=== PATIENT | male | born 1990 | race Caucasian/White ===

== ENCOUNTER 2018-11-28 13:29 | Inpatient (IN) | payer MEDICAID ==
[~2018-11-28] VITALS: Ht 182.9 cm; Wt 87.7 kg
[2018-11-28 16:27] VITALS: BP 118/71
[2018-11-28] MEDS ORDERED: HALOPERIDOL 5 MG TABLET PO PRN (16:45)
[2018-11-28] MEDS ORDERED: DIAZ5 PO (16:58)
[2018-11-28] MEDS ORDERED: MELO-107 PO (16:58)
[2018-11-28] MEDS ORDERED: QUET200T PO (16:58)
[2018-11-28] MEDS ORDERED: CITA-106 PO (16:58)
[2018-11-28 17:12] VITALS: BP 139/75
[2018-11-28] MEDS ORDERED: NICOTINE 14 MG/24 HOUR PATCH TD PRN (17:45)
[2018-11-28] MEDS ORDERED: PETROLATUM,WHITE 71 GM JELLY TP PRN (17:45)
[2018-11-28] MEDS ORDERED: IBUPROFEN 400 MG TABLET PO PRN (17:45)
[2018-11-28] MEDS ORDERED: LOPERAMIDE HCL 2 MG CAPSULE PO PRN (17:45)
[2018-11-28] MEDS ORDERED: MAGNESIUM HYDROXIDE SUSPENSION 30 ML UDCUP PO PRN (17:45)
[2018-11-28] MEDS ORDERED: GuaiFENesin/D-METHORPHAN [SUGAR-FREE] 200-20MG/10 ML SYRUP UDCUP PO PRN (17:45)
[2018-11-28] MEDS ORDERED: ALBUTEROL SULFATE HFA 90 MCG/PUFF 8 GM INHALER IH PRN (17:45)
[2018-11-28] MEDS ORDERED: DOCUSATE SODIUM 100 MG CAPSULE PO PRN (17:45)
[2018-11-28] MEDS ORDERED: MAG HYDROX/AL HYDROX/SIMETH ES 30 ML SUSPENSION UDCUP PO PRN (17:45)
[2018-11-28] MEDS ORDERED: CloNIDine HCL 0.1 MG TABLET PO PRN (17:45)
[2018-11-28] MEDS ORDERED: ONDANSETRON HCL 4 MG TABLET PO PRN (17:45)
[2018-11-28] MEDS ORDERED: ACETAMINOPHEN 325 MG TABLET PO PRN (17:45)
[2018-11-28] MEDS: ZOLPIDEM TARTRATE 10 MG TABLET PO PRN (21:13)
[2018-11-29 00:58] VITALS: BP 123/76
[2018-11-29 08:11] VITALS: BP 128/67
[2018-11-29 08:47] LABS: BASOPHILS % (AUTO) 1.1 % (0.0-2.0); EOSINOPHILS % (AUTO) 1.7 % (1.0-6.0); HEMATOCRIT 43.7 % (41-53); HEMOGLOBIN 14.6 g/dL (13.5-17.5); LYMPHOCYTES # (AUTO) 1.9 K/uL (1.0-4.8); LYMPHOCYTES % (AUTO) 29.5 % (22.0-44.0); MEAN CORPUSCULAR HEMOGLOBIN 28.6 pg (26.0-34.0); MEAN CORPUSCULAR HGB CONC 33.4 G/dL (31.0-37.0); MEAN CORPUSCULAR VOLUME 86 fL (80-100); MONOCYTES # (AUTO) 0.5 K/uL (0.1-1.0); MONOCYTES % (AUTO) 7.2 % (2.0-9.0); NEUTROPHILS # (AUTO) 3.8 K/uL (1.8-7.7); NEUTROPHILS % (AUTO) 60.5 % (40.0-70.0); PLATELET COUNT (AUTO) 253 K/uL (150-450); RED CELL DISTRIBUTION WIDTH 13.5 % (11.5-14.5)
[2018-11-29 08:55] LABS: ALANINE AMINOTRANSFERASE 18 U/L (12-78); ALBUMIN 3.7 g/dL (3.4-5.0); ALKALINE PHOSPHATASE 43 U/L (46-116); ANION GAP 5 mmol/L (8-16); ASPARTATE AMINOTRANSFERASE 13 U/L (15-37); BILIRUBIN,TOTAL 0.7 mg/dL (0.1-1.0); CALCIUM, TOTAL 8.8 mg/dL (8.8-10.5); CARBON DIOXIDE 31 mmol/L (22-29); CHLORIDE 107 mmol/L (98-107); CHOL/HDL RATIO 2.6 (4.2-7.3); CHOLESTEROL 131 mg/dL (131-200); CREATININE 0.61 mg/dL (0.60-1.30); FREE T4 (FREE THYROXINE) 0.73 ng/dL (0.76-1.46); GLOMERULAR FILTR. RATE CALC > 60 mL/min (>60); GLUCOSE,RANDOM 81 mg/dL (70-110); HDL CHOLESTEROL 50 mg/dL (40-60); LDL CHOL (CALC.) 72 mg/dL (0-130); POTASSIUM 4.1 mmol/L (3.5-5.1); SODIUM SERUM 143 mmol/L (136-145); THYROID STIMULATING HORMONE 0.64 uIU/mL (0.36-3.74); TOTAL PROTEIN, SERUM 6.8 g/dL (6.4-8.2); TRIGLYCERIDES 44 mg/dL (15-150); UREA NITROGEN, BLOOD 15 mg/dL (7-18)
[2018-11-29] MEDS: OLANZapine 5 MG TABLET PO SCH (09:24)
[2018-11-29 09:28] LABS: HEMOGLOBIN A1C 4.9 % (4.5-6.2)
[2018-11-29 16:10] VITALS: BP 108/60
[2018-11-29] MEDS: ZOLPIDEM TARTRATE 10 MG TABLET PO PRN (21:31)
[2018-11-29] MEDS: LORazepam 2 MG TABLET PO PRN (21:31)
[2018-11-30 04:11] VITALS: BP 124/80
[2018-11-30 08:00] VITALS: BP 138/78
[2018-11-30] MEDS: LORazepam 2 MG TABLET PO PRN ×2 (09:02→16:54)
[2018-11-30] MEDS: OLANZapine 5 MG TABLET PO SCH (09:02)
[2018-11-30 16:01] VITALS: BP 128/83
[2018-11-30] MEDS: ZOLPIDEM TARTRATE 10 MG TABLET PO PRN (20:14)
[2018-12-01 05:23] VITALS: BP 119/83
[2018-12-01 08:35] VITALS: BP 116/67
[2018-12-01] MEDS: OLANZapine 5 MG TABLET PO SCH (09:36)
[2018-12-01] MEDS ORDERED: OLAN5TAB2 PO (12:16)
== END 2018-12-01 13:55 | disposition home or self-care (01) | DRG 751 ==
LOC: B3A 16:39
PROVIDERS: ADMIT Psychiatry & Neurology Child & Adolescent Psychiatry; ATTEND Psychiatry & Neurology Child & Adolescent Psychiatry
DX: F29 Unspecified psychosis not due to a substance or known physiological condition (principal); F19.10 Other psychoactive substance abuse, uncomplicated; F41.9 Anxiety disorder, unspecified; G44.209 Tension-type headache, unspecified, not intractable; G47.00 Insomnia, unspecified; Z71.51 Drug abuse counseling and surveillance of drug abuser
CPT/HCPCS: 83036; 84439; 84443; 87081